=== PATIENT | female | born 1940 | race Caucasian/White ===

== ENCOUNTER 2018-08-26 17:07 | Emergency (ER) | payer MEDICARE, BC ==
[2018-08-26] MEDS ORDERED: Ketorolac 30 MG/ML SDV IM ONE (19:07)
[2018-08-26] MEDS ORDERED: HYDROmorphone 1 MG/ML Syringe IM ONE (19:07)
[2018-08-26] MEDS ORDERED: Diazepam 2 MG Tab PO ONE (19:07)
[2018-08-26] MEDS ORDERED: Diazepam 5 MG Tab PO ONE (20:01)
--- NOTE | 2018-08-26 20:26 | EDM.PDOC ---
ED HPI GENERAL MEDICAL PROBLEM - General Chief Complaint: Back Pain or Injury Stated Complaint: BACK PAIN Time Seen by Provider: 08/26/18 18:55 Source of Information: Reports: Patient History Limitations: Reports: No Limitations - History of Present Illness INITIAL COMMENTS - FREE TEXT/NARRATIVE: 77 year old female presents for evaluation and treatment of low back pain. Patient has chronic low back pain. Reports the end of June she was seen in [place] and had a steroid injection to her back. Patient is complaining of low back pain with radiation into her right buttocks. She denies any weakness in her legs, numbness or tingling into her legs, urinary incontinence or stool incontinence. Patient reports she had and MRI done 08-21-18 shows significant central canal stenosis. Right Hip Pain Score (Numeric/FACES): 10 - Related Data Allergies Allergy/AdvReac Type Severity Reaction Status Date / Time theophylline Allergy Nausea Verified 08/26/18 17:44 Home Meds: Home Meds Aspirin [Adult Low Dose Aspirin EC] 81 mg PO DAILY 07/06/18 [History] Diltiazem [Diltiazem XR] 360 mg PO DAILY 07/06/18 [History] Levothyroxine [Synthroid] 50 mcg PO ACBREAKFAST 07/06/18 [History] Albuterol Sulfate [Proventil Hfa] 2 puff INH DAILY 08/26/18 [History] Fluticasone Propionate [Flovent] 2 puff INH DAILY 08/26/18 [History] Ibuprofen [Advil] 800 mg PO Q6H PRN 08/26/18 [History] Ketorolac [Toradol] 10 mg PO TID PRN #15 tab 08/26/18 [Rx] Lidocaine 5% [Lidoderm 5%] 1 patch TOP ASDIRECTED 08/26/18 [History] Orphenadrine [Norflex] 100 mg PO BID PRN #14 tab 08/26/18 [Rx] oxyCODONE HCl/Acetaminophen [Percocet 5-325 mg Tablet] 5 - 325 mg PO Q4HR PRN [History] predniSONE [Prednisone] 20 mg PO DAILY #5 tablet 08/26/18 [Rx] traMADol [Ultram] 50 mg PO QID PRN 08/26/18 [History] Past Medical History HEENT History: Reports: Impaired Vision Cardiovascular History: Reports: Afib, High Cholesterol Respiratory History: Reports: Asthma Oncologic (Cancer) History: Reports: Breast - Past Surgical History GI Surgical History: Reports: Cholecystectomy Female Surgical History: Reports: Hysterectomy, Other (See Below) Other Female Surgeries/Procedures: right breast lumpectomy Oncologic Surgical History: Reports: Lumpectomy Social & Family History - Tobacco Use Smoking Status *Q: Former Smoker Used Tobacco, but Quit: Yes Month/Year Tobacco Last Used: 60 yr - Caffeine Use Caffeine Use: Reports: Coffee - Recreational Drug Use Recreational Drug Use: No ED ROS GENERAL - Review of Systems Review Of Systems: See Below GI/Abdominal: Denies: Stool Incontinence : Denies: Incontinence Musculoskeletal: Reports: Back Pain (Low right back into right buttocks). Denies: Leg Pain Neurological: Denies: Numbness, Tingling ED EXAM,LOWER BACK PAIN/INJURY - Physical Exam Exam: See Below Exam Limited By: No Limitations General Appearance: Alert, WD/WN, Mild Distress (difficulty getting comfortable , pacing around the room) Respiratory/Chest: No Respiratory Distress, Lungs Clear, Normal Breath Sounds Cardiovascular: Normal Peripheral Pulses, Regular Rate, Rhythm, No Murmur Back Exam: Normal Inspection, Other (identifies pain to the right L4/L5 radiating into the right buttocks). No: Vertebral Tenderness Extremities: Normal Inspection, Normal Range of Motion, Normal Capillary Refill Neurological: Alert, Normal Mood/Affect, Normal Dorsiflexion, Normal Plantar Flexion, Normal Gait Psychiatric: Normal Affect, Normal Mood Skin Exam: Warm, Dry, Normal Color Course - Vital Signs Last Recorded V/S: Last Vital Signs Temp 98.5 F 08/26/18 17:49 Pulse 80 08/26/18 17:49 Resp 20 08/26/18 17:49 BP 145/80 H 08/26/18 17:49 Pulse Ox 95 08/26/18 17:49 - Orders/Labs/Meds Meds: Medications Discontinued Medications Generic Name Dose Route Start Last Admin Trade Name Chitra PRN Reason Stop Dose Admin Diazepam 2 mg 08/26/18 19:07 Valium PO 08/26/18 19:08 ONETIME ONE Diazepam 2.5 mg 08/26/18 20:01 08/26/18 20:08 Valium. PO 08/26/18 20:02 2.5 mg ONETIME ONE Administration Hydromorphone HCl 1 mg 08/26/18 19:07 08/26/18 20:08 Dilaudid IM 08/26/18 19:08 1 mg ONETIME ONE Administration Ketorolac Tromethamine 30 mg 08/26/18 19:07 08/26/18 20:09 Toradol IM 08/26/18 19:08 30 mg ONETIME ONE Administration - Re-Assessments/Exams Free Text/Narrative Re-Assessment/Exam: 08/26/18 20:18 Patient has received the medications. She is concerned how these will affect her and wants to go home so she may rest. Recommend follow-up with her specialist and PCP for further management. She has an appointment in the near future to get a steroid injection. Recommend she see if she can be seen sooner. Discharge instructions as documented. Departure - Departure Time of Disposition: :19 Disposition: Home, Self-Care 01 Condition: Fair Clinical Impression: Chronic low back pain - Discharge Information *PRESCRIPTION DRUG MONITORING PROGRAM REVIEWED*: No *COPY OF PRESCRIPTION DRUG MONITORING REPORT IN PATIENT DAYNA: No Prescriptions: Ketorolac [Toradol] 10 mg PO TID PRN #15 tab PRN Reason: Pain Orphenadrine [Norflex] 100 mg PO BID PRN #14 tab PRN Reason: Muscle Spasm predniSONE [Prednisone] 20 mg PO DAILY #5 tablet Instructions: Chronic Back Pain Referrals: Kristian Boyd MD [Primary Care Provider] - Forms: ED Department Discharge Additional Instructions: you were given medication in the ER that can affect your ability to drive and operate machinery. Do not drive or operate machinery within 10 hours of taking prescription narcotic pain medication. Take the prednisone as prescribed. 1 tab daily for 5 days. May take Norflex as needed for muscle pain and spasm. 1 tab twice a day. This medication may make you drowsy, do not drive or operate machinery until you know how this medication will affect you. May take the Toradol 1 tab 3 times a day. Take this medication with food. Do not take more than 5 days. This is an NSAID. Do not take any Aleve, ibuprofen etc. with this medication. You may take the Percocet that you have at home for additional pain relief. You may take Percocet as prescribed. Continue using your lidocaine patches. Recommend ice or heat as needed for additional pain relief. follow-up with your specialist as planned. contact your primary care provider as needed for further pain management of your back pain. The prednisone and toradol can be hard on your stomach. I recommend you take these medications with food I also recommend you take a medication such as omeprazole or Zantac to help protect your stomach. Please return to the ER for symptoms change or worsen.
== END 2018-08-26 20:40 | disposition home or self-care (01) ==
LOC: JD.ED 17:07
DX: G89.29 Other chronic pain (principal); M54.5 Low back pain; Z88.8 Allergy status to other drugs, medicaments and biological substances; Z79.82 Long term (current) use of aspirin; Z79.899 Other long term (current) drug therapy; Z87.891 Personal history of nicotine dependence
CPT/HCPCS: 96372; 99283; A9270; J1170; J1885

== ENCOUNTER 2020-02-04 09:05 | Inpatient (IN) | payer MEDICARE, BC ==
[~2020-02-04 09:05] MED LIST: Lidocaine 1% 4 ML ONE; Lidocaine 1%/Sod Bicarbonate in NS 8.4% 1 ML Syringe IDERM PRN; Ondansetron 4 MG/2 ML SDV ONE; Propofol 200 MG/20 ML SDV ONE; Rocuronium 50 MG/5 ML Vial ONE; Sodium Chloride 0.9% 10 ML Syringe FLUSH PRN; fentaNYL 250 MCG/5 ML SDV ONE
[2020-02-04] MEDS: Lactated Ringers 1,000 ML IV SCH ×2 (09:30→16:55)
--- NOTE | 2020-02-04 09:41 | PCM.PREANE ---
Preanesthetic Assessment - Anesthesia/Transfusion/Family Hx Anesthesia History: Prior Anesthesia Without Reaction Family History of Anesthesia Reaction: No Transfusion History: No Prior Transfusion(s) - Review of Systems Pulmonary: Other (hx of asthma, uses inhaler daily. ) Cardiovascular: Other (hx of afib, on cardizem and well controlled, HTN) Gastrointestinal: Other (GERD, controlled) Neurological: Other (sciatica pain, right side low back pain, cyst lumbar spine) Other: Reports: Thyroid Problems - Physical Assessment NPO Status Date: 02/03/20 NPO Status Time: 22:00 Weight: 59 kg ASA Class: 3 Mental Status: Alert & Oriented x3 Airway Class: Mallampati = 2 Dentition: Reports: Normal Dentition Thyro-Mental Finger Breadths: 3 Mouth Opening Finger Breadths: 3 ROM/Head Extension: Full Lungs: Clear to Auscultation, Normal Respiratory Effort Cardiovascular: Regular Rate, Regular Rhythm - Lab Values: Laboratory Last Values SARS Virus RNA (PCR) Negative (NEGATIVE) 02/01/20 13:30 - Allergies Allergies/Adverse Reactions: Allergies Allergy/AdvReac Type Severity Reaction Status Date / Time theophylline Allergy Nausea Verified 02/01/20 16:14 - Blood Blood Available: No Product(s) Available: None - Anesthesia Plan Pre-Op Medication Ordered: None - Acknowledgements Anesthesia Type Planned: General Anesthesia Pt an Appropriate Candidate for the Planned Anesthesia: Yes Alternatives and Risks of Anesthesia Discussed w Pt/Guardian: Yes Pt/Guardian Understands and Agrees with Anesthesia Plan: Yes PreAnesthesia Questionnaire HEENT History: Reports: Impaired Vision, Other (See Below) Other HEENT History: WEARS GLASSES, HAS DENTURES Cardiovascular History: Reports: Afib, High Cholesterol, Other (See Below) Other Cardiovascular History: DYSRHYTHMIA Respiratory History: Reports: Asthma Gastrointestinal History: Reports: GERD, Helicobacter Pylori Genitourinary History: Reports: None ENTER[employer]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 Musculoskeletal History: Reports: Back Pain, Chronic, Other (See Below) Other Musculoskeletal History: myofascial pain Neurological History: Reports: None, Other (See Below) Other Neuro History: spinal stenosis Psychiatric History: Reports: None Endocrine/Metabolic History: Reports: Hypothyroidism Hematologic History: Reports: None Immunologic History: Reports: None Oncologic (Cancer) History: Reports: Breast Dermatologic History: Reports: None - Past Surgical History HEENT Surgical History: Reports: Naso-Sinus Surgery Cardiovascular Surgical History: Reports: None Respiratory Surgical History: Reports: None GI Surgical History: Reports: Appendectomy, Cholecystectomy, Colonoscopy, EGD Female Surgical History: Reports: Hysterectomy, Other (See Below) Other Female Surgeries/Procedures: right breast lumpectomy Endocrine Surgical History: Reports: None Neurological Surgical History: Reports: Other (See Below) Other Neurological Surgeries/Procedures: spinal surgery x 2 in 2019 with hardware placed Oncologic Surgical History: Reports: Lumpectomy Dermatological Surgical History: Reports: None - SUBSTANCE USE Smoking Status *Q: Former Smoker Recreational Drug Use History: No - HOME MEDS Home Medications: Home Meds Aspirin [Adult Low Dose Aspirin EC] 81 mg PO DAILY 07/06/18 [History] Levothyroxine [Synthroid] 50 mcg PO ACBREAKFAST 07/06/18 [History] Albuterol Sulfate [Proventil Hfa] 2 puff INH DAILY 08/26/18 [History] Fluticasone Propionate [Flovent] 2 puff INH DAILY 08/26/18 [History] Pravastatin Sodium 10 mg PO MOWEFR 02/01/20 [History] dilTIAZem HCL [Diltiazem 24Hr ER (Cd)] 240 mg PO DAILY 02/01/20 [History] - CURRENT (IN HOUSE) MEDS Current Meds: Current Medications Lactated Ringer's (Ringers, Lactated) 1,000 mls @ 125 mls/hr IV ASDIRECTED FABRICE Stop: 02/04/20 23:00 Lidocaine/Sodium Bicarbonate (Buffered Lidocaine 1% In Ns 8.4%) 0.25 ml IDERM ONETIME PRN PRN Reason: Prior to IV Start Stop: 02/04/20 18:00 Sodium Chloride (Saline Flush) 10 ml FLUSH ASDIRECTED PRN PRN Reason: Keep Vein Open Stop: 02/04/20 18:00 Discontinued Medications Fentanyl (Sublimaze) Confirm Administered Dose 250 mcg .ROUTE .STK-MED ONE Stop: 02/04/20 09:02 Lidocaine HCl (Xylocaine-Mpf 1%) Confirm Administered Dose 4 mls @ as directed .ROUTE .STK-MED ONE Stop: 02/04/20 09:03 Ondansetron HCl (Zofran) Confirm Administered Dose 4 mg .ROUTE .STK-MED ONE Stop: 02/04/20 09:01 Propofol (Diprivan 20 Ml) Confirm Administered Dose 200 mg .ROUTE .STK-MED ONE Stop: 02/04/20 09:02 Rocuronium Mitchell (Zemuron) Confirm Administered Dose 50 mg .ROUTE .STK-MED ONE Stop: 02/04/20 09:01
[2020-02-04] MEDS ORDERED: Methylene Blue 50 MG/10 ML Ampule ONE ×2 (10:34→10:38)
[2020-02-04] MEDS ORDERED: Sodium Chloride 0.9% 50 ML SDV ONE (10:35)
[2020-02-04] MEDS ORDERED: ePHEDrine Sulfate/0.9% NaCl/Pf 25 MG/5 ML SYRINGE IV ONE (12:22)
[2020-02-04] MEDS ORDERED: fentaNYL 250 MCG/5 ML SDV ONE (13:46)
[2020-02-04] MEDS ORDERED: Lactated Ringers 1,000 ML ONE (13:46)
--- NOTE | 2020-02-04 16:00 | PCM.OPNOTE ---
- General Post-Op/Procedure Note Date of Surgery/Procedure: 02/04/20 Operative Procedure(s): bilateral simple mastectomy Findings: Normal appearing left breast tissue, right breast with scar present consistent with previous surgery Pre Op Diagnosis: Recurrent right breast cancer Post-Op Diagnosis: Same Anesthesia Technique: General ET Tube Primary Surgeon: Yana Kauffman Anesthesia Provider: Ila Tolbert Pathology: 1. Left breast with inferior flap tissue in addition 2. Left breast skin 3. Right breast Fluid Replacement, Intraop: 2,000 Output, Urine Amount: 0 EBL in mLs: 400 Surgical Drain/Tube Type: Sachin Mendez Flat Drain Drain/Tube Comments:: two drains in each mastectomy cavity Complications: none apparent Condition: Good
--- NOTE | 2020-02-04 16:01 | PCM.PRNOTE ---
- Free Text/Narrative Note: DATE OF PROCEDURE: February 05, 2020 PROCEDURE: Bilateral mastectomy PREOP DX: Recurrent right breast cancer POSTOP DX: same SURGEON: Yana Kauffman MD FORENSIC COMPUTER EXAMINER: Ila Tolbert CRNA and Ari Winston CRNA ANESTHETIC: General anesthetic EBL: 400 mL IVF: 2000 mL UOP: 0 mL FINDINGS: Normal appearing left breast tissue, right breast with scar present consistent with previous surgery PATHOLOGY: 1. Left breast with inferior flap tissue in addition 2. Left breast skin 3. Right breast INDICATION: The patient is an 79-year old lady who initially presented with mammogram changes in the right breast. Subsequent workup included a core needle biopsy, which demonstrated right breast invasive ductal carcinoma. This was recurrence from the right breast cancer treated in 1994. Surgical intervention with a mastectomy on the right was recommended. The patient also wished to have a prophylactic mastectomy on the left. We discussed a sentinel lymph node biopsy on the left and this was strongly recommended, however, the patient did not wish to have any lymph node sampling done on the left. She understood the risks. We also discussed the possibility of reconstruction. The patient did not wish to have more than one operation and did not wish to have a reconstruction. The risks, benefits, alternative and rationale of surgery explained including the risk of not operating, bleeding, infection, seroma or hematoma. Informed consent was obtained for a bilateral simple mastectomy. DESCRIPTION OF THE PROCEDURE: The patient was brought to the operating room and placed in supine position on the operating table. General anesthesia was induced without difficulty. Preoperative antibiotics were administered according to SCIP guidelines. The bilateral chest and axilla were prepped and draped in a sterile fashion. A surgical timeout was performed. The incision was marked along the areolar border on the patient's left breast. An incision was made in an elliptical fashion on the left breast and flaps were raised. The specimen was dissected from the surrounding tissues using the Bovie device. The breast tissue was dissected down to the level of the clavicle and chest wall encompassing all of the breast tissue. It was then dissected free from the pectoralis fascia. The left breast specimen was oriented and passed off the table for routine pathology. We then inspected the flap thickness and there was additional tissue on the inferior flap. This was dissected free using Bovie device. We then inspected the skin. The patient did have a very large breast on the left side. Additional skin was then removed circumferentially to create a flat closure. The skin was also oriented and sent for pathology. The remaining cavity was inspected to ensure hemostasis and no additional abnormalities. Hemostasis was achieved using the Bovie device. Cavity was irrigated using sterile water. Two #10 flat PAULA drains were placed into the mastectomy cavity. These were secured in place using a 3-0 nylon suture. The skin was then reapproximated using 3-0 Vicryl interrupted deep dermal sutures and an overlying subcutaneous 4-0 Monocryl suture. Dermabond was used to cover the skin. We then turned our attention to the patient's right side. She did have changes consistent with previous quadrantectomy and radiation. An incision was made in an elliptical fashion on the right breast with symmetry to the left side, and flaps were raised. The specimen was dissected from the surrounding tissues using the Bovie device. The breast tissue was dissected down to the level of the clavicle and chest wall encompassing all of the breast tissue. It was then dissected free from the pectoralis fascia. We encountered previous scar tissue on the superior right chest and right axilla. The left breast specimen was oriented and passed off the table for routine pathology. The remaining cavity was inspected to ensure hemostasis and no additional abnormalities. Hemostasis was achieved using the Bovie device. Cavity was irrigated using sterile water. Two #10 flat PAULA drains were placed into the mastectomy cavity. These were secured in place using a 3-0 nylon suture. The skin was then reapproximated using 3-0 Vicryl interrupted deep dermal sutures and an overlying subcutaneous 4 -0 Monocryl suture. Dermabond was used to cover the skin. A dry dressing and surgical bra was placed. All instrument and sponge counts were correct. The patient was extubated and transferred to the PACU in stable condition. Yana Kauffman MD General Surgery
[2020-02-04] MEDS ORDERED: Albuterol/Ipratropium 3.0-0.5 MG/3 ML Neb Soln NEB PRN (16:13)
[2020-02-04] MEDS ORDERED: Docusate Sodium 100 MG Cap PO PRN (16:13)
[2020-02-04] MEDS ORDERED: oxyCODONE 5 MG Tab PO PRN (16:13)
[2020-02-04] MEDS ORDERED: Ondansetron 4 MG Tab.DIS PO PRN (16:13)
--- NOTE | 2020-02-04 16:29 | PCM.POSTAN ---
POST ANESTHESIA ASSESSMENT - MENTAL STATUS Mental Status: Somnolent - VITAL SIGNS Vital Signs: Last Vital Signs Temp 97.4 F 02/04/20 16:12 Pulse 77 02/04/20 16:12 Resp 14 02/04/20 16:12 BP 135/78 02/04/20 16:12 Pulse Ox 100 02/04/20 16:12 - RESPIRATORY Respiratory Status: Respiratory Rate WNL, Airway Patent, O2 Saturation Stable, Supplemental Oxygen - CARDIOVASCULAR CV Status: Pulse Rate WNL, Blood Pressure Stable - GASTROINTESTINAL GI Status: No Symptoms - PAIN Pain Score: 0 - POST OP HYDRATION Hydration Status: Adequate & Stable
[2020-02-04] MEDS: Acetaminophen 325 MG Tab PO SCH ×2 (17:41→20:31)
[2020-02-04] MEDS: Dextrose 5%-0.45% NaCl 1,000 ML IV SCH (17:44)
[2020-02-04] MEDS ORDERED: Promethazine 12.5 MG in Sodium Chloride 0.9% 50 ML IV PRN (19:02)
[2020-02-04] MEDS ORDERED: Simvastatin 10 MG Tab PO SCH (21:00)
[2020-02-05] MEDS: Acetaminophen 325 MG Tab PO SCH ×3 (00:37→08:17)
[2020-02-05] MEDS: Dextrose 5%-0.45% NaCl 1,000 ML IV SCH (05:19)
[2020-02-05] MEDS ORDERED: Levothyroxine 50 MCG Tab PO SCH (06:00)
--- NOTE | 2020-02-05 07:30 | PCM.SURGPN ---
- General Info Date of Service: 02/05/20 POD#: 1 Functional Status: Reports: Pain Controlled, Tolerating Diet, Ambulating, Urinating - Patient Data Vitals - Most Recent: Last Vital Signs Temp 36.7 C 02/05/20 05:18 Pulse 70 02/05/20 05:18 Resp 16 02/05/20 05:18 BP 112/77 02/05/20 05:18 Pulse Ox 96 02/05/20 05:18 Weight - Most Recent: 60.373 kg I&O - Last 24 Hours: Intake & Output 02/04/20 02/05/20 02/05/20 22:59 06:59 14:59 Intake Total 2150 1260 Output Total 60 625 Balance 2090 635 Lab Results Last 24 Hrs: Laboratory Results - last 24 hr 02/05/20 Range/Units 05:25 WBC 9.00 (3.98-10.04) K/mm3 RBC 4.27 (3.98-5.22) M/mm3 Hgb 13.0 D (11.2-15.7) gm/dl Hct 40.2 (34.1-44.9) % MCV 94.1 D (79.4-94.8) fl MCH 30.4 (25.6-32.2) pg MCHC 32.3 (32.2-35.5) g/dl RDW Std Deviation 42.5 (36.4-46.3) fL Plt Count 231 (182-369) K/mm3 MPV 10.0 (9.4-12.3) fl Neut % (Auto) 76.6 H (34.0-71.1) % Lymph % (Auto) 13.2 L (19.3-51.7) % [place] % (Auto) 8.8 (4.7-12.5) % Eos % (Auto) 1.1 (0.7-5.8) Baso % (Auto) 0.1 (0.1-1.2) % Neut # (Auto) 6.89 H (1.56-6.13) K/mm3 Lymph # (Auto) 1.19 (1.18-3.74) K/mm3 [place] # (Auto) 0.79 H (0.24-0.36) K/mm3 Eos # (Auto) 0.10 (0.04-0.36) K/mm3 Baso # (Auto) 0.01 (0.01-0.08) K/mm3 Manual Slide Review Not Reportable Med Orders - Current: Current Medications Acetaminophen (Tylenol) 650 mg PO Q4H [facility] Last Admin: 02/05/20 05:19 Dose: 650 mg Albuterol/Ipratropium (Duoneb 3.0-0.5 Mg/3 Ml) 3 ml NEB Q4H PRN PRN Reason: Shortness Of Breath/wheezing Aspirin (Halfprin) 81 mg PO DAILY [facility] Diltiazem HCl (Dilacor Xr) 240 mg PO DAILY [facility] Docusate Sodium (Colace) 100 mg PO BID PRN PRN Reason: Constipation Heparin Sodium (Porcine) (Heparin Sodium) 5,000 units SUBCUT Q8H [facility] Dextrose/Sodium Chloride (Dextrose 5%-1/2 Ns) 1,000 mls @ 80 mls/hr IV ASDIRECTED [facility] Last Admin: 02/05/20 05:19 Dose: 80 mls/hr Promethazine HCl 12.5 mg/ (Sodium Chloride) 50.5 mls @ 100 mls/hr IV Q6H PRN PRN Reason: Nausea/Vomiting Last Admin: 02/04/20 21:17 Dose: 100 mls/hr Levothyroxine Sodium (Synthroid) 50 mcg PO ACBREAKFAST [facility] Last Admin: 02/05/20 05:19 Dose: 50 mcg Ondansetron HCl (Zofran Odt) 4 mg PO Q6H PRN PRN Reason: nausea, able to take PO Last Admin: 02/04/20 17:41 Dose: 4 mg Oxycodone HCl (Oxycodone) 2.5 mg PO Q4H PRN PRN Reason: Pain (moderate 4-6) Simvastatin (Zocor) 5 mg PO [id number]@2100 [facility] Last Admin: 02/04/20 20:32 Dose: 5 mg Discontinued Medications Ephedrine Sulfate (Ephedrine 25 Mg/5 Ml Syringe) Confirm Administered Dose 25 mg IV .STK-MED ONE Stop: 02/04/20 12:23 Fentanyl (Sublimaze) Confirm Administered Dose 250 mcg .ROUTE .STK-MED ONE Stop: 02/04/20 09:02 Fentanyl (Sublimaze) Confirm Administered Dose 250 mcg .ROUTE .STK-MED ONE Stop: 02/04/20 13:47 Glycopyrrolate () Confirm Administered Dose 1 mg .ROUTE .STK-MED ONE Stop: 02/04/20 13:46 Lactated Ringer's (Ringers, Lactated) 1,000 mls @ 125 mls/hr IV ASDIRECTED [facility] Stop: 02/04/20 23:00 Last Admin: 02/04/20 16:55 Dose: 125 mls/hr Lidocaine HCl (Xylocaine-Mpf 1%) Confirm Administered Dose 4 mls @ as directed .ROUTE .STK-MED ONE Stop: 02/04/20 09:03 Lactated Ringer's (Ringers, Lactated) Confirm Administered Dose 1,000 mls @ as directed .ROUTE .STK-MED ONE Stop: 02/04/20 13:47 Lidocaine/Sodium Bicarbonate (Buffered Lidocaine 1% In Ns 8.4%) 0.25 ml IDERM ONETIME PRN PRN Reason: Prior to IV Start Stop: 02/04/20 18:00 Last Admin: 02/04/20 09:29 Dose: 0.25 ml Methylene Blue (Provayblue) Confirm Administered Dose 50 mg .ROUTE .STK-MED ONE Stop: 02/04/20 10:35 Methylene Blue (Provayblue) Confirm Administered Dose 50 mg .ROUTE .STK-MED ONE Stop: 02/04/20 10:39 Non-Formulary Medication (Fluticasone Propionate [Flovent]) 2 puff INH DAILY [facility] Ondansetron HCl (Zofran) Confirm Administered Dose 4 mg .ROUTE .STK-MED ONE Stop: 02/04/20 09:01 Propofol (Diprivan 20 Ml) Confirm Administered Dose 200 mg .ROUTE .STK-MED ONE Stop: 02/04/20 09:02 Rocuronium [place] (Zemuron) Confirm Administered Dose 50 mg .ROUTE .STK-MED ONE Stop: 02/04/20 09:01 Sodium Chloride (Saline Flush) 10 ml FLUSH ASDIRECTED PRN PRN Reason: Keep Vein Open Stop: 02/04/20 18:00 Sodium Chloride (Normal Saline) Confirm Administered Dose 50 ml .ROUTE .STK-MED ONE Stop: 02/04/20 10:36 - Exam Wound/Incisions: Healing Well, No Drainage, Other (PAULA drains in place with SS drainage) General: Alert, Oriented Lungs: Normal Respiratory Effort Sepsis Event Note - Evaluation Sepsis Screening Result: No Definite Risk - Focused Exam Vital Signs: Vital Signs Temp Pulse Resp BP Pulse Ox 02/05/20 05:18 36.7 C 70 16 112/77 96 02/05/20 00:39 36.6 C 71 16 111/78 96 02/04/20 20:45 36.5 C 73 16 115/96 H 96 02/04/20 19:36 61 12 119/98 H 96 Date Exam was Performed: 02/05/20 Time Exam was Performed: 11:36 - Problem List & Annotations (1) Recurrent cancer of right breast SNOMED Code(s): 740204192, 303100571 Code(s): C50.911 - MALIGNANT NEOPLASM OF UNSP SITE OF RIGHT FEMALE BREAST Status: Acute Current Visit: Yes - Problem List Review Problem List Initiated/Reviewed/Updated: Yes - My Orders Last 24 Hours: Active Orders 24 hr Category Date Time Status Patient Status [ADT] Routine ADT 02/04/20 16:13 Active Antiembolic Devices [RC] QSHIFT Care 02/04/20 16:14 Active Communication Order [RC] , Care 02/04/20 16:13 Active Drain Management [RC] 04,10,16,22 Care 02/04/20 16:13 Active Intake and Output [RC] 04,16 Care 02/04/20 16:14 Active Oxygen Therapy [RC] PRN Care 02/04/20 16:13 Active RT Aerosol Therapy [RC] ASDIRECTED Care 02/04/20 16:19 Active Up With Assistance [RC] BID Care 02/04/20 16:13 Active VTE/DVT Education [RC] QSHIFT Care 02/04/20 16:13 Active Vital Signs [RC] Q4HR Care 02/04/20 16:13 Active OT Evaluation and Treatment [CONS] Routine Cons 02/04/20 16:13 Active Regular Diet [DIET] Diet 02/04/20 Dinner Active Acetaminophen [Tylenol] Med 02/04/20 17:00 Active 650 mg PO Q4H Albuterol/Ipratropium [DuoNeb 3.0-0.5 MG/3 ML] Med 02/04/20 16:13 Active 3 ml NEB Q4H PRN Aspirin [Halfprin] Med 02/05/20 09:00 Active 81 mg PO DAILY Dextrose 5%-0.45% NaCl [Dextrose 5%-1/2 NS] 1,000 ml Med 02/04/20 16:15 Active IV ASDIRECTED Diltiazem [Dilacor XR] Med 02/05/20 09:00 Active 240 mg PO DAILY Docusate Sodium [Colace] Med 02/04/20 16:13 Active 100 mg PO BID PRN Heparin Sodium Med 02/05/20 08:00 Active 5,000 units SUBCUT Q8H Levothyroxine [Synthroid] Med 02/05/20 06:00 Active 50 mcg PO ACBREAKFAST Ondansetron [Zofran ODT] Med 02/04/20 16:13 Active 4 mg PO Q6H PRN Promethazine [Phenergan] 12.5 mg Med 02/04/20 19:02 Active Sodium Chloride 0.9% [Normal Saline] 50 ml IV Q6H Simvastatin [Zocor] Med 02/04/20 21:00 Active 5 mg PO [id number] oxyCODONE Med 02/04/20 16:13 Active 2.5 mg PO Q4H PRN Medication Administration Instruction [OM.PC] Routine Oth 02/04/20 07:00 Ordered Peripheral IV Insertion Adult [OM.PC] Routine Oth 02/04/20 07:00 Ordered Sequential Compression Device [OM.PC] Per Unit Routine Oth 02/04/20 16:14 Ordered Resuscitation Status Routine Resus Stat 02/04/20 16:13 Ordered EKG 12 Lead [EK] Routine Ther 02/04/20 09:04 Ordered Medication Orders Acetaminophen (Tylenol) 650 mg PO Q4H [facility] Last Admin: 02/05/20 05:19 Dose: 650 mg Admin: 02/05/20 00:37 Dose: 650 mg Admin: 02/04/20 20:31 Dose: 650 mg Admin: 02/04/20 17:41 Dose: 650 mg Albuterol/Ipratropium (Duoneb 3.0-0.5 Mg/3 Ml) 3 ml NEB Q4H PRN PRN Reason: Shortness Of Breath/wheezing Aspirin (Halfprin) 81 mg PO DAILY [facility] Diltiazem HCl (Dilacor Xr) 240 mg PO DAILY [facility] Docusate Sodium (Colace) 100 mg PO BID PRN PRN Reason: Constipation Heparin Sodium (Porcine) (Heparin Sodium) 5,000 units SUBCUT Q8H [facility] Dextrose/Sodium Chloride (Dextrose 5%-1/2 Ns) 1,000 mls @ 80 mls/hr IV ASDIRECTED [facility] Last Admin: 02/05/20 05:19 Dose: 80 mls/hr Infusion: 02/05/20 05:19 Dose: 80 mls/hr Admin: 02/04/20 17:44 Dose: 80 mls/hr Promethazine HCl 12.5 mg/ (Sodium Chloride) 50.5 mls @ 100 mls/hr IV Q6H PRN PRN Reason: Nausea/Vomiting Last Admin: 02/04/20 21:17 Dose: 100 mls/hr Levothyroxine Sodium (Synthroid) 50 mcg PO ACBREAKFAST [facility] Last Admin: 02/05/20 05:19 Dose: 50 mcg Ondansetron HCl (Zofran Odt) 4 mg PO Q6H PRN PRN Reason: nausea, able to take PO Last Admin: 02/04/20 17:41 Dose: 4 mg Oxycodone HCl (Oxycodone) 2.5 mg PO Q4H PRN PRN Reason: Pain (moderate 4-6) Simvastatin (Zocor) 5 mg PO MoWeFr@2100 [facility] Last Admin: 02/04/20 20:32 Dose: 5 mg - Assessment Assessment (Free Text/Narrative):: 79 y/o female with recurrent right breast cancer, s/p bilateral mastectomy. Doing well - Plan Plan (Free Text/Narrative):: - regular diet - may d/c IVF - continue tylenol for pain control - ambulate - drain teaching - incentive spirometry - OT for post-mastectomy exercises Yana Kauffman MD General surgery
--- NOTE | 2020-02-05 07:57 | PCM48HPAN ---
Post Anesthesia Note - EVALUATION WITHIN 48HRS OF ANESTHETIC Vital Signs in Normal Range: Yes Patient Participated in Evaluation: Yes Respiratory Function Stable: Yes Airway Patent: Yes Cardiovascular Function Stable: Yes Hydration Status Stable: Yes Pain Control Satisfactory: Yes Nausea and Vomiting Control Satisfactory: Yes Mental Status Recovered: Yes Vital Signs: Last Vital Signs Temp 36.7 C 02/05/20 05:18 Pulse 70 02/05/20 05:18 Resp 16 02/05/20 05:18 BP 112/77 02/05/20 05:18 Pulse Ox 96 02/05/20 05:18 - COMMENTS/OBSERVATIONS Free Text/Narrative:: no anesthesia complications noted
[2020-02-05] MEDS ORDERED: Heparin Sodium 5,000 Units/ML Vial SUBCUT SCH (08:00)
[2020-02-05] MEDS ORDERED: Non-Formulary Medication 1 Each (Fluticasone Propionate [Flovent] 2 PUFF) INH SCH (09:00)
[2020-02-05] MEDS ORDERED: Diltiazem 240 MG Cap.ER PO SCH (09:00)
[2020-02-05] MEDS ORDERED: Aspirin 81 MG Tab.EC PO SCH (09:00)
--- NOTE | 2020-02-05 11:55 | PCM.DCSUM1 ---
Discharge Summary - Hospital Course Free Text/Narrative:: The patient was admitted after bilateral mastectomy for recurrent right breast cancer. She had a successful surgery. On postoperative day one, she was doing well with good pain control and appropriate drain output. She was seen by OT and given teaching on drain management. She was discharged home on POD 1. Diagnosis: Stroke: Yes Modified Venkata Scale: No Signif.Disability Despite Sympt.Able to Carry Out Usual Act./Duties Modified [place] Scale Score: 1 - Discharge Data Discharge Date: 02/05/20 Discharge Disposition: Home, Self-Care 01 Condition: Good - Referral to Home Health Primary Care Physician: Kristian Boyd MD - Discharge Diagnosis/Problem(s) (1) Recurrent cancer of right breast SNOMED Code(s): 449758041, [id number] ICD Code: C50.911 - MALIGNANT NEOPLASM OF UNSP SITE OF RIGHT FEMALE BREAST Status: Acute Current Visit: Yes - Patient Summary/Data Operative Procedure(s) Performed: bilateral simple mastectomy Consults: Consultations 02/04/20 16:13 OT Evaluation and Treatment [CONS] Routine - Patient Instructions Diet: Usual Diet as Tolerated Activity: As Tolerated, No Strenuous Activities (For 2 weeks or until the drains are removed) Driving: Do Not Drive (for 1 week) Showering/Bathing: No Showering (until 2 days after the drains are removed), No Tub Bathing/Swimming (for 2 weeks, the drains must be removed and healed as well ) Wound/Incision Care: Keep Operative Site/Wound Site Clean and Dry Notify Provider of: Fever, Increased Pain, Swelling and Redness, Drainage - Discharge Plan *PRESCRIPTION DRUG MONITORING PROGRAM REVIEWED*: Not Applicable *COPY OF PRESCRIPTION DRUG MONITORING REPORT IN PATIENT DAYNA: Not Applicable Prescriptions/Med Rec: Acetaminophen [Tylenol] 650 mg PO Q4H PRN 20 Days #80 tablet PRN Reason: Pain Docusate Sodium [Colace] 100 mg PO BID PRN #40 cap PRN Reason: Constipation Home Medications: Home Meds Aspirin [Adult Low Dose Aspirin EC] 81 mg PO DAILY 07/06/18 [History] Levothyroxine [Synthroid] 50 mcg PO ACBREAKFAST 07/06/18 [History] Albuterol Sulfate [Proventil Hfa] 2 puff INH DAILY 08/26/18 [History] Fluticasone Propionate [Flovent] 2 puff INH DAILY 08/26/18 [History] Pravastatin Sodium 10 mg PO MOWEFR 02/01/20 [History] dilTIAZem HCL [Diltiazem 24Hr ER (Cd)] 240 mg PO DAILY 02/01/20 [History] Acetaminophen [Tylenol] 650 mg PO Q4H PRN 20 Days #80 tablet 02/05/20 [Rx] Docusate Sodium [Colace] 100 mg PO BID PRN #40 cap 02/05/20 [Rx] Referrals: Renata Huff, [employer] [Nurse Practitioner] - (Follow up in 1 week) - Discharge Summary/Plan Comment DC Time >30 min.: No - Patient Data Vitals - Most Recent: Last Vital Signs Temp 36.8 C 02/05/20 07:57 Pulse 68 02/05/20 07:57 Resp 20 02/05/20 07:57 BP 106/65 02/05/20 07:57 Pulse Ox 94 L 02/05/20 07:57 Weight - Most Recent: 60.373 kg I&O - Last 24 hours: Intake & Output 02/04/20 02/05/20 02/05/20 22:59 06:59 14:59 Intake Total 2150 1260 240 Output Total 60 625 Balance 2090 635 240 Lab Results - Last 24 hrs: Laboratory Results - last 24 hr 02/05/20 Range/Units 05:25 WBC 9.00 (3.98-10.04) K/mm3 RBC 4.27 (3.98-5.22) M/mm3 Hgb 13.0 D (11.2-15.7) gm/dl Hct 40.2 (34.1-44.9) % MCV 94.1 D (79.4-94.8) fl MCH 30.4 (25.6-32.2) pg MCHC 32.3 (32.2-35.5) g/dl RDW Std Deviation 42.5 (36.4-46.3) fL Plt Count 231 (182-369) K/mm3 MPV 10.0 (9.4-12.3) fl Neut % (Auto) 76.6 H (34.0-71.1) % Lymph % (Auto) 13.2 L (19.3-51.7) % [place] % (Auto) 8.8 (4.7-12.5) % Eos % (Auto) 1.1 (0.7-5.8) Baso % (Auto) 0.1 (0.1-1.2) % Neut # (Auto) 6.89 H (1.56-6.13) K/mm3 Lymph # (Auto) 1.19 (1.18-3.74) K/mm3 [place] # (Auto) 0.79 H (0.24-0.36) K/mm3 Eos # (Auto) 0.10 (0.04-0.36) K/mm3 Baso # (Auto) 0.01 (0.01-0.08) K/mm3 Manual Slide Review Not Reportable Med Orders - Current: Current Medications Acetaminophen (Tylenol) 650 mg PO Q4H [facility] Last Admin: 02/05/20 08:17 Dose: 650 mg Albuterol/Ipratropium (Duoneb 3.0-0.5 Mg/3 Ml) 3 ml NEB Q4H PRN PRN Reason: Shortness Of Breath/wheezing Aspirin (Halfprin) 81 mg PO DAILY [facility] Last Admin: 02/05/20 08:16 Dose: 81 mg Diltiazem HCl (Dilacor Xr) 240 mg PO DAILY [facility] Last Admin: 02/05/20 08:18 Dose: 240 mg Docusate Sodium (Colace) 100 mg PO BID PRN PRN Reason: Constipation Heparin Sodium (Porcine) (Heparin Sodium) 5,000 units SUBCUT Q8H [facility] Last Admin: 02/05/20 08:15 Dose: 5,000 units Dextrose/Sodium Chloride (Dextrose 5%-1/2 Ns) 1,000 mls @ 80 mls/hr IV ASDIRECTED [facility] Last Admin: 02/05/20 05:19 Dose: 80 mls/hr Promethazine HCl 12.5 mg/ (Sodium Chloride) 50.5 mls @ 100 mls/hr IV Q6H PRN PRN Reason: Nausea/Vomiting Last Admin: 02/04/20 21:17 Dose: 100 mls/hr Levothyroxine Sodium (Synthroid) 50 mcg PO ACBREAKFAST [facility] Last Admin: 02/05/20 05:19 Dose: 50 mcg Ondansetron HCl (Zofran Odt) 4 mg PO Q6H PRN PRN Reason: nausea, able to take PO Last Admin: 02/04/20 17:41 Dose: 4 mg Oxycodone HCl (Oxycodone) 2.5 mg PO Q4H PRN PRN Reason: Pain (moderate 4-6) Simvastatin (Zocor) 5 mg PO MoWeFr@2100 [facility] Last Admin: 02/04/20 20:32 Dose: 5 mg Discontinued Medications Ephedrine Sulfate (Ephedrine 25 Mg/5 Ml Syringe) Confirm Administered Dose 25 mg IV .STK-MED ONE Stop: 02/04/20 12:23 Fentanyl (Sublimaze) Confirm Administered Dose 250 mcg .ROUTE .STK-MED ONE Stop: 02/04/20 09:02 Fentanyl (Sublimaze) Confirm Administered Dose 250 mcg .ROUTE .STK-MED ONE Stop: 02/04/20 13:47 Glycopyrrolate () Confirm Administered Dose 1 mg .ROUTE .STK-MED ONE Stop: 02/04/20 13:46 Lactated Ringer's (Ringers, Lactated) 1,000 mls @ 125 mls/hr IV ASDIRECTED [facility] Stop: 02/04/20 23:00 Last Admin: 02/04/20 16:55 Dose: 125 mls/hr Lidocaine HCl (Xylocaine-Mpf 1%) Confirm Administered Dose 4 mls @ as directed .ROUTE .STK-MED ONE Stop: 02/04/20 09:03 Lactated Ringer's (Ringers, Lactated) Confirm Administered Dose 1,000 mls @ as directed .ROUTE .STK-MED ONE Stop: 02/04/20 13:47 Lidocaine/Sodium Bicarbonate (Buffered Lidocaine 1% In Ns 8.4%) 0.25 ml IDERM ONETIME PRN PRN Reason: Prior to IV Start Stop: 02/04/20 18:00 Last Admin: 02/04/20 09:29 Dose: 0.25 ml Methylene Blue (Provayblue) Confirm Administered Dose 50 mg .ROUTE .STK-MED ONE Stop: 02/04/20 10:35 Methylene Blue (Provayblue) Confirm Administered Dose 50 mg .ROUTE .STK-MED ONE Stop: 02/04/20 10:39 Non-Formulary Medication (Fluticasone Propionate [Flovent]) 2 puff INH DAILY [facility] Ondansetron HCl (Zofran) Confirm Administered Dose 4 mg .ROUTE .STK-MED ONE Stop: 02/04/20 09:01 Propofol (Diprivan 20 Ml) Confirm Administered Dose 200 mg .ROUTE .STK-MED ONE Stop: 02/04/20 09:02 Rocuronium [place] (Zemuron) Confirm Administered Dose 50 mg .ROUTE .STK-MED ONE Stop: 02/04/20 09:01 Sodium Chloride (Saline Flush) 10 ml FLUSH ASDIRECTED PRN PRN Reason: Keep Vein Open Stop: 02/04/20 18:00 Sodium Chloride (Normal Saline) Confirm Administered Dose 50 ml .ROUTE .STK-MED ONE Stop: 02/04/20 10:36
== END 2020-02-05 12:48 | disposition home or self-care (01) | DRG 583 ==
LOC: JD.SDS 09:05 → JD.MS 09:05 → JD.SDS 16:13
PROVIDERS: ADMIT Surgery; ATTEND Surgery
PROC: 0HBV0ZZ Excision of Bilateral Breast, Open Approach (ICD-10-PCS; principal; 2020-02-05)
DX: C50.911 Malignant neoplasm of unspecified site of right female breast (principal); Z90.710 Acquired absence of both cervix and uterus; Z90.49 Acquired absence of other specified parts of digestive tract
CPT/HCPCS: 00400; 36415; 85025; 93005; 97165-GO; 97530-GO; A9270-GY; J0171; J1644; J2001; J2405; J2550; J2704; J3010; J7042; J7050; J7120; U0002

== ENCOUNTER 2021-11-01 20:54 | Emergency (ER) | payer MEDICARE, BC | END 2021-11-01 23:12 | disposition home or self-care (01) | LOC: JD.ED 20:54 | DX: I49.3 Ventricular premature depolarization (principal); E78.00 Pure hypercholesterolemia, unspecified; I48.91 Unspecified atrial fibrillation; K21.9 Gastro-esophageal reflux disease without esophagitis; Z88.8 Allergy status to other drugs, medicaments and biological substances; Z79.82 Long term (current) use of aspirin; Z79.899 Other long term (current) drug therapy | CPT/HCPCS: 36415; 71045; 71045-26; 80053; 83735; 84484; 85025; 85610; 85730; 93005; 93010; 99285; 99285-25 ==